=== PATIENT | male | born 1940 ===

== ENCOUNTER 2016-12-17 13:49 | Inpatient (IN) | payer OTHER, MEDICAID ==
[2016-12-17 13:50] VITALS: BMI 26.6
[2016-12-17] MEDS ORDERED: Sodium Chloride 0.9% 1,000 ML IV STA (14:57)
--- NOTE | 2016-12-17 15:05 | ED PDOC ---
HPI: Altered Mental Status Time Seen by Provider: 12/17/16 14:23 Chief Complaint (Nursing): Altered Mental Status Chief Complaint (Provider): generalized weakness History Per: Patient History/Exam Limitations: None Onset/Duration Of Symptoms: Days (x 1) Use Of Anticoag/Antiplatlets: No Additional Complaint(s): Alan Muhammad is a 76 year old male, with a previous medical history of COPD, diabetes and hypertension, who presents to the ED with complaints of generalized weakness associated with a productive cough and chest pain when coughing ongoing for one day. Patient denies any shortness of breath, vomiting or diarrhea. Patient reports to calling his PMD who recommended patient be seen in the ED for further evaluation. He reports to taking 30 mg of morphine BID and 15 mg Oxycodone BID. PMD: Dr. Seo Past Medical History Reviewed: Historical Data, Nursing Documentation, Vital Signs Vital Signs: Last Vital Signs Temp 98.2 F 12/17/16 13:51 Pulse 95 H 12/17/16 13:51 Resp 18 12/17/16 13:51 BP 105/67 12/17/16 13:51 Pulse Ox 100 12/17/16 13:51 - Medical History PMH: Anxiety, Arthritis, Asthma, COPD, CVA, Depression, Diabetes, HTN Denies: HIV, Chronic Kidney Disease - Surgical History Surgical History: Appendectomy - Family History Family History: States: Unknown Family Hx - Social History Current smoker - smoking cessation education provided: Yes (3 cigars a day) - Home Medications Home Medications: Ambulatory Orders Medication Instructions Recorded Albuterol Sulfate [Proair Hfa] 2 puff IH Q1 PRN 12/17/16 Aspirin [Ecotrin] 81 mg PO DAILY 12/17/16 Atorvastatin [Lipitor] 40 mg PO HS 12/17/16 Clonazepam [Klonopin] 2 mg PO TID 12/17/16 DULoxetine [Cymbalta] 60 mg PO BID 12/17/16 Enalapril Maleate [Vasotec] 20 mg PO Q12 12/17/16 Famotidine [Pepcid] 20 mg PO DAILY 12/17/16 Gabapentin [Neurontin] 300 mg PO Q8 12/17/16 Gabapentin [Neurontin] 300 mg PO TID 12/17/16 Levofloxacin [Levaquin] 500 mg PO DAILY 12/17/16 Levothyroxine [Levoxyl] 0.175 mg PO DAILY 12/17/16 Lisinopril [Zestril] 10 mg PO DAILY 12/17/16 Losartan/Hydrochlorothiazide 1 each PO DAILY 12/17/16 [Losartan-Hctz 100-25 mg Tab] Tamsulosin [Flomax] 0.4 mg PO DAILY 12/17/16 Venlafaxine HCl [Venlafaxine HCl 37.5 mg PO BID 12/17/16 ER] amLODIPine [Norvasc] 10 mg PO HS 12/17/16 metFORMIN [glucOPHAGE] 500 mg PO BID 12/17/16 - Allergies Allergies/Adverse Reactions: Allergies Allergy/AdvReac Type Severity Reaction Status Date / Time No Known Allergies Allergy Verified 12/17/16 13:51 Review of Systems ROS Statement: Except As Marked, All Systems Reviewed And Found Negative Constitutional: Negative for: Fever, Chills Cardiovascular: Positive for: Chest Pain (secondary to coughing ) Respiratory: Positive for: Cough, Sputum Gastrointestinal: Negative for: Nausea, Vomiting, Abdominal Pain, Diarrhea Neurological: Positive for: Weakness (generalized) Physical Exam - Reviewed Nursing Documentation Reviewed: Yes Vital Signs Reviewed: Yes - Physical Exam Appears: Positive for: Well (sleepy but arousable ), Non-toxic, No Acute Distress Head Exam: Positive for: ATRAUMATIC, NORMAL INSPECTION, NORMOCEPHALIC Skin: Positive for: Normal Color, Warm, Dry Eye Exam: Positive for: EOMI, Normal appearance, PERRL ENT: Positive for: Other (dry mucous membranes ) Neck: Positive for: Normal, Painless ROM, Supple Cardiovascular/Chest: Positive for: Regular Rate, Rhythm Respiratory: Positive for: CNT, Normal Breath Sounds Gastrointestinal/Abdominal: Positive for: Normal Exam, Bowel Sounds, Soft. Negative for: Tenderness Extremity: Positive for: Normal ROM, Pedal Edema (pitting 1+ bilaterally ) Neurologic/Psych: Positive for: Alert, Oriented (x 3) - Laboratory Results Result Diagrams: 12/17/16 15:49 12/17/16 15:49 - ECG O2 Sat by Pulse Oximetry: 100 (RA) Pulse Ox Interpretation: Normal Medical Decision Making Medical Decision Making: Initial Impression: Altered Mental Status, Dehydration, Opiate intoxication Initial Plan: * CT head w/o contrast * CXR * EKG * alcohol serum * labs * urine drug screen * lactic acid * urine dipstick * IV NS 1,000 ml at 1,000 ml/hr * reevaluation Scribe Attestation: Documented by Caity Montenegro, acting as a scribe for Myra Hernández MD. Provider Scribe Attestation: All medical record entries made by the Scribe were at my direction and personally dictated by me. I have reviewed the chart and agree that the record accurately reflects my personal performance of the history, physical exam, medical decision making, and the department course for this patient. I have also personally directed, reviewed, and agree with the discharge instructions and disposition. Disposition - Clinical Impression Clinical Impression: Opioid intoxication - Patient ED Disposition Is Patient to be Admitted: Yes Doctor Will See Patient In The: Hospital Counseled Patient/Family Regarding: Diagnosis, Need For Followup - Disposition Disposition Time: 17:00 Condition: GUARDED - Pt Status Changed To: Hospital Disposition Of: Observation - POA Present On Arrival: None
[2016-12-17 16:01] LABS: BASO % 0.4 % (0.0-2.0); EOS # 0.2 K/uL (0.0-0.7); EOS % 2.3 % (0.0-4.0); HEMATOCRIT 42.9 % (35.0-51.0); LYMPH # 1.1 K/uL (1.0-4.3); LYMPH % 10.7 % (20.0-40.0); MEAN CELL VOLUME 94.3 fl (80.0-94.0); MEAN CORPUSCULAR HEMOGLOBIN 32.1 pg (27.0-31.0); MEAN PLATELET VOLUME 9.1 fl (7.2-11.7); MONO % 9.7 % (0.0-10.0); NEUT # 8.2 K/uL (1.8-7.0); NEUT % 76.9 % (50.0-75.0); NRBC % 0.1 % (0.0-0.0); RED CELL DISTRIBUTION WIDTH 14.6 % (11.5-14.5); WHITE BLOOD COUNT 10.6 K/uL (4.8-10.8)
[2016-12-17 16:11] LABS: ALB/GLOB RATIO 1.3 (1.0-2.1); ALCOHOL SERUM < 10 mg/dl (0-10); ALKALINE PHOSPHATASE 76 U/L (38-126); ALT/SGPT 38 U/L (21-72); AST/SGOT 25 U/L (17-59); BILIRUBIN,TOTAL 1.1 mg/dl (0.2-1.3); BLOOD UREA NITROGEN 22 mg/dl (9-20); CALCIUM 8.4 mg/dL (8.4-10.2); CARBON DIOXIDE 32 mmol/L (22-30); CHLORIDE 104 mmol/L (98-107); GFR AFRICAN-AMERICAN > 60; GLUCOSE,RANDOM 121 mg/dL (75-110); SODIUM 142 mmol/l (132-148); TOTAL PROTEIN 6.3 G/DL (6.3-8.2)
--- NOTE | 2016-12-17 16:11 | RAD ---
PROCEDURE: CHEST RADIOGRAPH, 1 VIEW HISTORY: cough COMPARISON: None available. FINDINGS: LUNGS: Clear. PLEURA: No pneumothorax or pleural fluid seen. CARDIOVASCULAR: Normal. OSSEOUS STRUCTURES: No significant abnormalities. VISUALIZED UPPER ABDOMEN: Normal. OTHER FINDINGS: None. IMPRESSION: No active disease.
--- NOTE | 2016-12-17 16:50 | CT ---
PROCEDURE: CT HEAD WITHOUT CONTRAST. HISTORY: AMS COMPARISON: 12/04/2013. TECHNIQUE: Axial computed tomography images were obtained through the head/brain without intravenous contrast. Radiation dose: Total exam DLP = 1361.92 mGy-cm. This CT exam was performed using one or more of the following dose reduction techniques: Automated exposure control, adjustment of the mA and/or kV according to patient size, and/or use of iterative reconstruction technique. FINDINGS: HEMORRHAGE: No intracranial hemorrhage. BRAIN: No mass effect or edema. Cortical atrophy, periventricular small vessel disease VENTRICLES: Unremarkable. No hydrocephalus. CALVARIUM: Unremarkable. PARANASAL SINUSES: Unremarkable as visualized. No significant inflammatory changes. MASTOID AIR CELLS: Unremarkable as visualized. No inflammatory changes. OTHER FINDINGS: None. IMPRESSION: No acute intracranial abnormalities. No significant findings to account for the clinical presentation.No significant interval change compared to the prior examination(s). Limitations of the current examination: Patient related motion induced artifact.
[2016-12-17] MEDS ORDERED: Albuterol-Ipratrop 3 mg / 0.5 (3 ml) UD INH STA (23:29)
[2016-12-17] MEDS ORDERED: Morphine 15 mg SR Tab PO ONE (23:31)
[2016-12-18 07:34] LABS: HEMATOCRIT 42.3 % (35.0-51.0); MEAN CELL VOLUME 94.3 fl (80.0-94.0); MEAN CORPUSCULAR HGB CONC 33.9 g/dL (33.0-37.0); RED CELL DISTRIBUTION WIDTH 14.7 % (11.5-14.5); WHITE BLOOD COUNT 9.6 K/uL (4.8-10.8)
[2016-12-18 07:39] LABS: ALB/GLOB RATIO 1.2 (1.0-2.1); ALKALINE PHOSPHATASE 80 U/L (38-126); ALT/SGPT 29 U/L (21-72); AST/SGOT 19 U/L (17-59); BILIRUBIN,TOTAL 1.2 mg/dl (0.2-1.3); BLOOD UREA NITROGEN 17 mg/dl (9-20); CALCIUM 8.3 mg/dL (8.4-10.2); CARBON DIOXIDE 29 mmol/L (22-30); CHLORIDE 106 mmol/L (98-107); CHOLESTEROL 116 mg/dL (0-199); GFR AFRICAN-AMERICAN > 60; GLUCOSE,RANDOM 94 mg/dL (75-110); POTASSIUM 3.6 MMOL/L (3.6-5.0); SODIUM 140 mmol/l (132-148); TOTAL PROTEIN 5.8 G/DL (6.3-8.2)
[2016-12-18] MEDS: Albuterol-Ipratrop 3 mg / 0.5 (3 ml) UD INH SCH ×3 (07:40→19:21)
[2016-12-18 08:09] LABS: PROSTATE SPECIFIC ANTIGEN 3.41 ng/ML (0.00-4.0); THYROID STIMULATING HORMONE 0.48 mIU/ML (0.46-4.68)
--- NOTE | 2016-12-18 09:56 | CP.PCM.CON ---
History of Present Illness - History of Present Illness History of Present Illness: 76 yo man well known to me from previous admissions is referred for pain management. Patient has chronic pain from presumed spondylosis and neuropathy, on chronic opioids, was found confused and taken to the hospital. Apparently patient had been in [place] for several months and decided to come to [place] despite not having definite plans. Per patient his daughter wasn't home, per police the daughter didn't want to take him in. He last filled prescriptions in [place] in December/2015, there were sporadic prescriptions for Percocet 10mg, Roxicodone 15mg, and Morphine. He claims to be on Neurontin and Xanax as well. RIght now he's oriented x 3. He complains of pain in the neck, lower back and legs, and inability to move his legs. He denies recent trauma or falls. Past Patient History - Infectious Disease Hx of Infectious Diseases: None - Tetanus Immunizations Tetanus Immunization: Unknown - Past Medical History & Family History Past Medical History?: Yes - Past Social History Smoking Status: Never Smoked - CARDIAC Hx Hypertension: Yes - PULMONARY Hx Asthma: Yes Hx Chronic Obstructive Pulmonary Disease (COPD): Yes - NEUROLOGICAL Hx Neurological Disorder: Yes (cva) - HEENT Hx HEENT Problems: No - RENAL Hx Chronic Kidney Disease: No - ENDOCRINE/METABOLIC Hx Endocrine Disorders: Yes Hx Diabetes Mellitus Type 2: Yes - HEMATOLOGICAL/ONCOLOGICAL Hx AIDS: No Hx Human Immunodeficiency Virus (HIV): No - INTEGUMENTARY Hx Dermatological Problems: No - MUSCULOSKELETAL/RHEUMATOLOGICAL Hx Arthritis: Yes Hx Falls: No - GASTROINTESTINAL Hx Gastrointestinal Disorders: No - GENITOURINARY/GYNECOLOGICAL Hx Genitourinary Disorders: No - PSYCHIATRIC Hx Anxiety: Yes Hx Depression: Yes Hx Substance Use: No - SURGICAL HISTORY Hx Appendectomy: Yes - ANESTHESIA Hx Anesthesia: Yes Hx Anesthesia Reactions: No Hx Malignant Hyperthermia: No Meds Allergies/Adverse Reactions: Allergies Allergy/AdvReac Type Severity Reaction Status Date / Time No Known Allergies Allergy Verified 12/17/16 13:51 - Medications Medications: Current Medications Albuterol/Ipratropium (Duoneb 3 Mg/0.5 Mg (3 Ml) Ud) 3 ml INH RQ6 [facility] Last Admin: 12/18/16 07:40 Dose: 3 ml Aspirin (Ecotrin) 81 mg PO DAILY [facility] Physical Exam - Respiratory Exam Respiratory Exam: NORMAL BREATHING PATTERN - Cardiovascular Exam Cardiovascular Exam: REGULAR RHYTHM Results - Vital Signs Recent Vital Signs: Last Vital Signs Temp 98.9 F 12/18/16 08:00 Pulse 80 12/18/16 08:00 Resp 18 12/18/16 08:00 BP 152/82 H 12/18/16 08:00 Pulse Ox 91 L 12/18/16 08:00 - Labs Result Diagrams: 12/18/16 05:45 12/18/16 05:45 Labs: Laboratory Results - last 24 hr 12/17/16 12/18/16 12/18/16 21:27 05:20 05:45 WBC 9.6 RBC 4.49 Hgb 14.3 Hct 42.3 MCV 94.3 H MCH 32.0 H MCHC 33.9 RDW 14.7 H Plt Count 98 L Sodium Potassium Chloride Carbon Dioxide Anion Gap BUN Creatinine Est GFR ( Amer) Est GFR (Non-Af Amer) POC Glucose (mg/dL) 127 H 113 H Random Glucose Calcium Total Bilirubin AST ALT Alkaline Phosphatase Total Protein Albumin Globulin Albumin/Globulin Ratio Triglycerides Cholesterol LDL Cholesterol Direct HDL Cholesterol Prostate Specific Ag Thyroxine (T4) TSH 3rd Generation 12/18/16 05:45 WBC RBC Hgb Hct MCV MCH MCHC RDW Plt Count Sodium 140 Potassium 3.6 Chloride 106 Carbon Dioxide 29 Anion Gap 8 L BUN 17 Creatinine 0.8 Est GFR ( Amer) > 60 Est GFR (Non-Af Amer) > 60 POC Glucose (mg/dL) Random Glucose 94 Calcium 8.3 L Total Bilirubin 1.2 AST 19 ALT 29 Alkaline Phosphatase 80 Total Protein 5.8 L Albumin 3.2 L Globulin 2.6 Albumin/Globulin Ratio 1.2 Triglycerides 100 Cholesterol 116 LDL Cholesterol Direct 54 HDL Cholesterol 39 Prostate Specific Ag 3.41 Thyroxine (T4) 6.20 TSH 3rd Generation 0.48 Assessment & Plan (1) Chronic back pain Assessment and Plan: 76 yo man w/ known chronic pain history and on chronic pain medications supposedly had AMS. It's unclear if patient took more medication than usual. There is also the matter of disposition for the patient. - restart Percocet 5/325mg, titrate as needed - f/u psych eval - can resume previous pain regimen once patient is cleared by psych - social service consult for placement, patient has no address to return to [facility] Status: Acute Priority: High
[2016-12-18] MEDS ORDERED: guaiFENesin 100 mg/5 ml Syrup UD PO PRN (09:59)
[2016-12-18] MEDS: Oxycodone/Acetaminophen 5/325 mg Tab PO PRN ×3 (10:10→22:33)
--- NOTE | 2016-12-18 13:09 | CP.PCM.HP ---
History of Present Illness - History of Present Illness History of Present Illness: CC: AMS. 76 y/o M, brought to ER [facility] for evaluation of AMS on DOA with no relief. Pt was brought by EMS to hospital after been found with confusion,disoriented, wondering in the street, there after on evaluation, symptoms were associated to Opiates abuse. Patient previously was living in [place] , He moved to [place] for about a year and just arrived to [place] , as per police report He has a daughter living in [place] , but She does not want to take care of him. Patient is on chronic opiates pain medication for chronic back , Cervical pain , O/A Hips , knees, and chronic benzodiazepines and antidepresants for chronic anxiety and depression. Worsening symptoms: Generalized weakness, productive cough, chest pain with coughing, currently light smoker. Aggravated factor: Poor historian 2nd to change in mental condition. Pt denied: Fever, chills, n/v/d, abdominal pain. PMHx: COPD, CVA 2010, DMII, HTN, Chronic back pain, O/A, Dementia, Major Depression, Anxiety. CXR shows: No active disease. EKG: Normal sinus rhythms, left axis deviation, incomplete RBBB, Possible septal infarct, age undetermined. Head CT: No acute intracranial abnormalities. Present on Admission - Present on Admission Any Indicators Present on Admission: No History of Uncontrolled Diabetes: No Review of Systems - Constitutional Constitutional: Weakness - EENT Eyes: Requires Corrective Lenses Ears: Other (negative) Nose/Mouth/Throat: Other (negative) - Cardiovascular Cardiovascular: Other (negative) - Respiratory Respiratory: Cough, Pain with Coughing - Gastrointestinal Gastrointestinal: Other (negative) - Genitourinary Genitourinary: Other (negative) - Musculoskeletal Musculoskeletal: Arthralgias, Back Pain, Neck Pain - Integumentary Integumentary: Other (negative) - Neurological Neurological: Weakness - Psychiatric Psychiatric: Anxiety, Confusion, Depression - Endocrine Endocrine: Other (negative) - Hematologic/Lymphatic Hematologic: Other (negative) Past Patient History - Infectious Disease Hx of Infectious Diseases: None - Tetanus Immunizations Tetanus Immunization: Unknown - Past Medical History & Family History Past Medical History?: Yes - Past Social History Smoking Status: Light Smoker < 10 Cigarettes Daily Alcohol: None Drugs: Opiates Home Situation {Lives}: Alone - CARDIAC Hx Cardiac Disorders: Yes Hx Hypertension: Yes - PULMONARY Hx Respiratory Disorders: Yes Hx Asthma: Yes Hx Bronchitis: Yes Hx Chronic Obstructive Pulmonary Disease (COPD): Yes - NEUROLOGICAL Hx Neurological Disorder: Yes (cva) - HEENT Hx HEENT Problems: No - RENAL Hx Chronic Kidney Disease: No - ENDOCRINE/METABOLIC Hx Endocrine Disorders: Yes Hx Diabetes Mellitus Type 2: Yes Hx Hypothyroidism: Yes - HEMATOLOGICAL/ONCOLOGICAL Hx AIDS: No Hx Human Immunodeficiency Virus (HIV): No - INTEGUMENTARY Hx Dermatological Problems: No - MUSCULOSKELETAL/RHEUMATOLOGICAL Hx Musculoskeletal Disorders: Yes Hx Arthritis: Yes Hx Back Pain: Yes Hx Falls: No - GASTROINTESTINAL Hx Gastrointestinal Disorders: No - GENITOURINARY/GYNECOLOGICAL Hx Genitourinary Disorders: No - PSYCHIATRIC Hx Psychophysiologic Disorder: Yes Hx Anxiety: Yes Hx Depression: Yes Hx Substance Use: No - SURGICAL HISTORY Hx Surgeries: Yes Hx Appendectomy: Yes - ANESTHESIA Hx Anesthesia: Yes Hx Anesthesia Reactions: No Hx Malignant Hyperthermia: No Meds Allergies/Adverse Reactions: Allergies Allergy/AdvReac Type Severity Reaction Status Date / Time No Known Allergies Allergy Verified 12/17/16 13:51 Physical Exam - Constitutional Appears: Confused, Chronically Ill - Head Exam Head Exam: NORMAL INSPECTION - Eye Exam Eye Exam: PERRL - ENT Exam ENT Exam: Normal Exam - Neck Exam Neck exam: Positive for: Tenderness (Cervical) - Respiratory Exam Respiratory Exam: Decreased Breath Sounds (at bases), Rhonchi (few at bases) - Cardiovascular Exam Cardiovascular Exam: REGULAR RHYTHM - GI/Abdominal Exam GI & Abdominal Exam: Normal Bowel Sounds, Soft - Extremities Exam Extremities exam: Positive for: tenderness (R-L knee , RL Hip , R L hand) Additional comments: Trace edema L/E - Back Exam Back exam: tenderness (L-S) - Neurological Exam Neurological exam: Alert Additional comments: Oriented 2-1/2, Forgetful. moves upper extremities, L/E with weakness but difficult to assess due to L-S, R-L hip, R-L knee tenderness. - Psychiatric Exam Psychiatric exam: Anxious, Depressed - Skin Skin Exam: Warm Results - Vital Signs Recent Vital Signs: Last Vital Signs Temp 98.4 F 12/18/16 12:00 Pulse 81 12/18/16 12:00 Resp 18 12/18/16 12:00 BP 123/92 H 12/18/16 12:00 Pulse Ox 96 12/18/16 12:00 - Labs Result Diagrams: 12/18/16 05:45 12/18/16 05:45 Assessment & Plan (1) Opioid intoxication Status: Acute Priority: High (2) Altered mental status Status: Acute Priority: High (3) Pain in both knees Status: Chronic Priority: High (4) Cervical pain Status: Chronic Priority: High (5) Pain of both hip joints Status: Chronic Priority: High (6) Chronic back pain Status: Chronic Priority: High (7) COPD (chronic obstructive pulmonary disease) Status: Chronic Priority: Medium (8) HTN (hypertension) Status: Chronic Priority: Medium (9) Depression Status: Chronic Priority: High (10) Anxiety Status: Chronic Priority: High (11) Diabetes mellitus Status: Chronic (12) Hypothyroidism Status: Chronic - Assessment and Plan (Free Text) Plan: Pain control with , PT eval, Pain management consult appreciated, f/u Neuro and Psychiatric and Social Service consult - Date & Time Date: 12/18/16 Time: 11:30
--- NOTE | 2016-12-18 14:04 | CARD ---
APPROVED REPORT EKG Measurement Heart [id number] <Conclusion> Normal sinus rhythm Left axis deviation Incomplete right bundle branch block Possible septal infarct, age undetermined Abnormal ECG
--- NOTE | 2016-12-18 14:44 | CP.PCM.CON ---
History of Present Illness - History of Present Illness History of Present Illness: psychiatry consult ordered by: dr. rodríguez reason: opioid/benzo intoxication cc: i don't need you pt is refusing consult. can retry tomorrow if pt is more cooperative denies any suicidal thoughts. has history of abusing prescription medications with poor insight. history of mood dysregulation. please call if any questions [phone] Past Patient History - Infectious Disease Hx of Infectious Diseases: None - Tetanus Immunizations Tetanus Immunization: Unknown - Past Medical History & Family History Past Medical History?: Yes - Past Social History Smoking Status: Never Smoked - CARDIAC Hx Hypertension: Yes - PULMONARY Hx Asthma: Yes Hx Chronic Obstructive Pulmonary Disease (COPD): Yes - NEUROLOGICAL Hx Neurological Disorder: Yes (cva) - HEENT Hx HEENT Problems: No - RENAL Hx Chronic Kidney Disease: No - ENDOCRINE/METABOLIC Hx Endocrine Disorders: Yes Hx Diabetes Mellitus Type 2: Yes - HEMATOLOGICAL/ONCOLOGICAL Hx AIDS: No Hx Human Immunodeficiency Virus (HIV): No - INTEGUMENTARY Hx Dermatological Problems: No - MUSCULOSKELETAL/RHEUMATOLOGICAL Hx Arthritis: Yes Hx Falls: No - GASTROINTESTINAL Hx Gastrointestinal Disorders: No - GENITOURINARY/GYNECOLOGICAL Hx Genitourinary Disorders: No - PSYCHIATRIC Hx Anxiety: Yes Hx Depression: Yes Hx Substance Use: No - SURGICAL HISTORY Hx Appendectomy: Yes - ANESTHESIA Hx Anesthesia: Yes Hx Anesthesia Reactions: No Hx Malignant Hyperthermia: No Meds Allergies/Adverse Reactions: Allergies Allergy/AdvReac Type Severity Reaction Status Date / Time No Known Allergies Allergy Verified 12/17/16 13:51 - Medications Medications: Current Medications Albuterol/Ipratropium (Duoneb 3 Mg/0.5 Mg (3 Ml) Ud) 3 ml INH RQ6 [facility] Last Admin: 12/18/16 13:22 Dose: 3 ml Aspirin (Ecotrin) 81 mg PO DAILY [facility] Last Admin: 12/18/16 10:12 Dose: 81 mg Famotidine (Pepcid) 20 mg PO DAILY [facility] Gabapentin (Neurontin) 300 mg PO BID [facility] Guaifenesin (Robitussin) 100 mg PO Q6 PRN PRN Reason: Cough Last Admin: 12/18/16 10:17 Dose: 100 mg Levothyroxine Sodium (Synthroid) 175 mcg PO DAILY@0630 [facility] Lisinopril (Zestril) 10 mg PO DAILY [facility] Metformin HCl (Glucophage) 500 mg PO BIDWM [facility] Oxycodone/Acetaminophen (Percocet 5/325 Mg Tab) 1 tab PO Q6 PRN PRN Reason: Pain, severe (8-10) Stop: 12/21/16 10:01 Last Admin: 12/18/16 10:10 Dose: 1 tab Tamsulosin HCl (Flomax) 0.4 mg PO DAILY [facility] Results - Vital Signs Recent Vital Signs: Last Vital Signs Temp 98.4 F 12/18/16 12:00 Pulse 81 12/18/16 12:00 Resp 18 12/18/16 12:00 BP 123/92 H 12/18/16 12:00 Pulse Ox 96 12/18/16 12:00 - Labs Result Diagrams: 12/18/16 05:45 12/18/16 05:45
[2016-12-18] MEDS: Levothyroxine 175 MCG TAB PO SCH (15:34)
--- NOTE | 2016-12-18 15:48 | CON ---
DATE: 12/18/2016 CHIEF COMPLAINT: Chronic low back pain and neck pain and generalized weakness. HISTORY OF PRESENT ILLNESS: This is a 76-year-old man with history of chronic obstructive pulmonary disease, diabetes, hypertension, who came to the hospital with generalized weakness associated with a productive cough for 1 day and he has been having chronic pain syndrome from his low back and cervic al area. 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 He is on multiple amounts of opiate medications such as morphine 30 mg of morphine p.o. b.i.d., oxycodone 15 mg p.o. b.i.d., MS John. His U-tox is positive for opiates and benzos. He does take Xanax as well and Neurontin for neuropathic pain. I feel that he is definitely abusing prescription medication with poor insight. He declined a psychiatric consult. Pain management has seen the patient and just recommended some Percocet and titrate as needed and to follow up as an outp atient. I saw her physical therapist at bedside. She also recommended subacute rehabilitation for h is low back pain and his poor balance. PAST MEDICAL HISTORY: Diabetes, COPD, hypertension, dyslipidemia. REVIEW OF SYSTEMS: A 14-point review of systems is negative except for the HPI. FAMILY HISTORY: Noncontributory. SOCIAL HISTORY: No illicit drug use, smoking, or ETOH abuse. ALLERGIES: No known drug allergies. PAST SURGICAL HISTORY: Appendectomy. FAMILY HISTORY: Noncontributory. PHYSICAL EXAMINATION: VITAL SIGNS: Temperature is 98.4, pulse rate of 81, blood pressure 123/92, respiratory rate 18, oxyg en saturation 96% on room air. GENERAL: The patient is sitting up in bed in no acute distress. HEENT: Atraumatic, normocephalic. PERRLA. Extraocular muscles intact. NECK: Supple, no JVD, no adenopathy noted. LUNGS: Clear to auscultation. No adventitious sounds. HEART: S1, S2, normal rate and rhythm. No murmurs, rubs, or gallops. ABDOMEN: Soft, nontender and nondistended. Bowel sounds are present. EXTREMITIES: No clubbing, no cyanosis. Peripheral pulses are 2+ felt bilaterally. NEUROLOGIC: The patient is alert, oriented to person, place, month and year. Speech is fluent, with out any errors. Poor attention span, slow thought process. Has lack of insight and judgment. Crani al nerves II-XII are intact. MOTOR: Slight increased tone throughout. Moves all extremities equally. No pronator drift is seen. SENSORY: Decreased light touch and pinprick up to the calves bilaterally, diffuse vibration of the t oes, proprioception intact bilaterally. DTRs are 1+ throughout and absent at the ankles. COORDINATION: [id number] intact. GAIT: Deferred for now. LABORATORY DATA: U-tox is positive for opiates and benzos. Sodium is 140, potassium 3.6, chloride o f 106, carbon dioxide 29, BUN of 17, creatinine 0.8. Random glucose 94. ASSESSMENT AND PLAN: This is a 76-year-old man with history of chronic obstructive pulmonary disease , history of depression, diabetes, hypertension, anxiety, arthritis, who presented with generalized w eakness, some productive cough and chest pain which he has been seeing Dr. Seo for his medical doct or. Was consulted for his lower extremity weakness and generalized weakness. He has chronic low back pain and chronic neck pain with some radicular component. His chronic low back pain radiates down m ostly his left leg. 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 He has history of MRIs in the past. No results are reported. He has a massive amount of opi ates in terms of morphine 30 mg p.o. b.i.d. and oxycodone 15 mg b.i.d., Neurontin and Xanax. At this time, his generalized weakness overall is secondary to overuse of opiate medications. Morphine can also lower his blood pressure which can make him generally weak. At this time, recommend: 1. Physical therapy and occupational therapy for deconditioning, arthritis and for the cervical and lumbosacral radiculopathies. 2. We will recommend him to go to subacute rehabilitation for deconditioned state and some cervical and lumbosacral pain relief. Plus he also would benefit from muscle strengthening and a TENS unit, u ltrasound therapy and rehabilitation. 3. We will recommend gabapentin 600 mg p.o. b.i.d. and discontinue morphine and oxycodone. Can take p.r.n. Percocet as per pain management. 4. Can follow up with a pain specialist. 5. We will get an MRI of the C and lumbar spine and if there is any cord compression or any severe l umbar and cervical stenosis, could consult neurosurgery. At this time, recommend subacute rehabilita tion. He is clinically stable. Will sign off. Emigdio Marcum MD cc: [id number] TT: 12/18/2016 15:47:34 Confirmation # [id number] Dictation # [id number] [email or web address]
[2016-12-19] MEDS: Albuterol-Ipratrop 3 mg / 0.5 (3 ml) UD INH SCH ×4 (01:10→19:05)
[2016-12-19] MEDS: Levothyroxine 175 MCG TAB PO SCH (05:55)
[2016-12-19] MEDS: Oxycodone/Acetaminophen 5/325 mg Tab PO PRN ×3 (07:30→21:08)
[2016-12-19 09:18] LABS: BLOOD UREA NITROGEN 13 mg/dl (9-20); CALCIUM 8.8 mg/dL (8.4-10.2); CARBON DIOXIDE 24 mmol/L (22-30); CHLORIDE 109 mmol/L (98-107); GFR AFRICAN-AMERICAN > 60; GLUCOSE,RANDOM 130 mg/dL (75-110); POTASSIUM 3.6 MMOL/L (3.6-5.0); SODIUM 142 mmol/l (132-148)
--- NOTE | 2016-12-19 14:22 | CP.PCM.CON ---
History of Present Illness - History of Present Illness History of Present Illness: psychiatry consult reason: medication recommendations, ? overdose ordered by dr. rodríguez cc: don't take away my klonopin pt has history of anxiety, depression. he initially is denying being in a psychiatric hospital in past, until confronted with fact that pt was seen by this scientific technical writer in past on step unit and on medical floor here. he was stating that he just came after 4 years in [place]. he states he has intractable pain from injuries. he is being seen by pain management here now. he denies that he tried to take on overdose and denies that he wants to kill himself. he states the klonopin is to help him deal with the pain. at first he denies having any problems with withdrawal, but then states he is feeling anxious and shaky. patient does no want inpatient psychiatric treatment. past psych: as above. was hospitalized on step unit. no dementia per psychology assessment there. was tapered off benzos on unit. medical; as per dr. 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 states he is living in [place] and wants to return there. mse: alert, oriented x. 3. mood is anxious. affect congruent. thoughts are focused on his benzodizapine medications. he is denying any suicidal or homicidal thoughts. denies any a/v hallucinations. fair i/j. diagnosis: mood disorder unspecified sedative hypnotic abuse/dependence recommendation: would restart klonopin 1mg tid and start to taper to prevent withdrawal discontinue restoril pt was taking remeron in past and can restart that for sleep cleared for discharged in terms of psychiatric safety as he is goal directed, future oriented and denying any thoughts to harm himself refused idea of inpt rehab / detox for sedative hypnotic abuse Past Patient History - Infectious Disease Hx of Infectious Diseases: None - Tetanus Immunizations Tetanus Immunization: Unknown - Past Medical History & Family History Past Medical History?: Yes - Past Social History Smoking Status: Light Smoker < 10 Cigarettes Daily Alcohol: None Drugs: Opiates Home Situation {Lives}: Alone - CARDIAC Hx Cardiac Disorders: Yes Hx Hypertension: Yes - PULMONARY Hx Respiratory Disorders: Yes Hx Asthma: Yes Hx Bronchitis: Yes Hx Chronic Obstructive Pulmonary Disease (COPD): Yes - NEUROLOGICAL Hx Neurological Disorder: Yes (cva) - HEENT Hx HEENT Problems: No - RENAL Hx Chronic Kidney Disease: No - ENDOCRINE/METABOLIC Hx Endocrine Disorders: Yes Hx Diabetes Mellitus Type 2: Yes Hx Hypothyroidism: Yes - HEMATOLOGICAL/ONCOLOGICAL Hx AIDS: No Hx Human Immunodeficiency Virus (HIV): No - INTEGUMENTARY Hx Dermatological Problems: No - MUSCULOSKELETAL/RHEUMATOLOGICAL Hx Musculoskeletal Disorders: Yes Hx Arthritis: Yes Hx Back Pain: Yes Hx Falls: No - GASTROINTESTINAL Hx Gastrointestinal Disorders: No - GENITOURINARY/GYNECOLOGICAL Hx Genitourinary Disorders: No - PSYCHIATRIC Hx Psychophysiologic Disorder: Yes Hx Anxiety: Yes Hx Depression: Yes Hx Substance Use: No - SURGICAL HISTORY Hx Surgeries: Yes Hx Appendectomy: Yes - ANESTHESIA Hx Anesthesia: Yes Hx Anesthesia Reactions: No Hx Malignant Hyperthermia: No Meds Allergies/Adverse Reactions: Allergies Allergy/AdvReac Type Severity Reaction Status Date / Time No Known Allergies Allergy Verified 12/17/16 13:51 - Medications Medications: Current Medications Albuterol/Ipratropium (Duoneb 3 Mg/0.5 Mg (3 Ml) Ud) 3 ml INH RQ6 [facility] Last Admin: 12/19/16 13:49 Dose: 3 ml Aspirin (Ecotrin) 81 mg PO DAILY [facility] Last Admin: 12/19/16 08:53 Dose: 81 mg Famotidine (Pepcid) 20 mg PO DAILY [facility] Last Admin: 12/19/16 08:53 Dose: 20 mg Gabapentin (Neurontin) 400 mg PO BID [facility] Last Admin: 12/19/16 08:53 Dose: 400 mg Guaifenesin (Robitussin) 100 mg PO Q6 PRN PRN Reason: Cough Last Admin: 12/18/16 10:17 Dose: 100 mg Levothyroxine Sodium (Synthroid) 175 mcg PO DAILY@0630 [facility] Last Admin: 12/19/16 05:55 Dose: 175 mcg Lisinopril (Zestril) 10 mg PO DAILY [facility] Last Admin: 12/19/16 08:53 Dose: 10 mg Metformin HCl (Glucophage) 500 mg PO BIDWM [facility] Last Admin: 12/19/16 08:53 Dose: 500 mg Oxycodone/Acetaminophen (Percocet 5/325 Mg Tab) 1 tab PO Q6 PRN PRN Reason: Pain, severe (8-10) Stop: 12/21/16 10:01 Last Admin: 12/19/16 12:54 Dose: 1 tab Tamsulosin HCl (Flomax) 0.4 mg PO DAILY [facility] Last Admin: 12/18/16 15:28 Dose: Not Given Results - Vital Signs Recent Vital Signs: Last Vital Signs Temp 98.3 F 12/19/16 12:41 Pulse 91 H 12/19/16 12:41 Resp 17 12/19/16 12:41 BP 140/65 12/19/16 12:41 Pulse Ox 97 12/19/16 12:41 - Labs Result Diagrams: 12/18/16 05:45 12/19/16 08:56 Labs: Laboratory Results - last 24 hr 12/18/16 12/18/16 12/19/16 15:48 22:04 05:21 Sodium Potassium Chloride Carbon Dioxide Anion Gap BUN Creatinine Est GFR ( Amer) Est GFR (Non-Af Amer) POC Glucose (mg/dL) 176 H 149 H 131 H Random Glucose Calcium 12/19/16 12/19/16 08:56 11:39 Sodium 142 Potassium 3.6 Chloride 109 H Carbon Dioxide 24 Anion Gap 13 BUN 13 Creatinine 0.7 L Est GFR ( Amer) > 60 Est GFR (Non-Af Amer) > 60 POC Glucose (mg/dL) 118 H Random Glucose 130 H Calcium 8.8
--- NOTE | 2016-12-19 14:22 | CP.PCM.PN ---
Subjective - Date & Time of Evaluation Date of Evaluation: 12/19/16 Time of Evaluation: 10:30 - Subjective Subjective: F/U Opioid intoxication. Patient complaimns of Cervical , L-S , R L knee pain, R L L/E weakness, requestiing Rachel for anxiety and help with the pain Objective - Vital Signs/Intake and Output Vital Signs (last 24 hours): Temp Pulse Resp BP Pulse Ox 98.3 F 91 H 17 140/65 97 12/19/16 12:41 12/19/16 12:41 12/19/16 12:41 12/19/16 12:41 12/19/16 12:41 - Medications Medications: Current Medications Albuterol/Ipratropium (Duoneb 3 Mg/0.5 Mg (3 Ml) Ud) 3 ml INH RQ6 [facility] Last Admin: 12/19/16 13:49 Dose: 3 ml Aspirin (Ecotrin) 81 mg PO DAILY [facility] Last Admin: 12/19/16 08:53 Dose: 81 mg Famotidine (Pepcid) 20 mg PO DAILY [facility] Last Admin: 12/19/16 08:53 Dose: 20 mg Gabapentin (Neurontin) 400 mg PO BID [facility] Last Admin: 12/19/16 08:53 Dose: 400 mg Guaifenesin (Robitussin) 100 mg PO Q6 PRN PRN Reason: Cough Last Admin: 12/18/16 10:17 Dose: 100 mg Levothyroxine Sodium (Synthroid) 175 mcg PO DAILY@0630 [facility] Last Admin: 12/19/16 05:55 Dose: 175 mcg Lisinopril (Zestril) 10 mg PO DAILY [facility] Last Admin: 12/19/16 08:53 Dose: 10 mg Metformin HCl (Glucophage) 500 mg PO BIDWM [facility] Last Admin: 12/19/16 08:53 Dose: 500 mg Oxycodone/Acetaminophen (Percocet 5/325 Mg Tab) 1 tab PO Q6 PRN PRN Reason: Pain, severe (8-10) Stop: 12/21/16 10:01 Last Admin: 12/19/16 12:54 Dose: 1 tab Tamsulosin HCl (Flomax) 0.4 mg PO DAILY [facility] Last Admin: 12/18/16 15:28 Dose: Not Given - Labs Labs: 12/19/16 08:56 - Constitutional Appears: Chronically Ill - Head Exam Head Exam: NORMAL INSPECTION - Eye Exam Eye Exam: PERRL - ENT Exam ENT Exam: Normal Exam - Neck Exam Neck Exam: Tenderness (Cervical) - Respiratory Exam Respiratory Exam: Decreased Breath Sounds (at bases), Rhonchi (few at bases) - Cardiovascular Exam Cardiovascular Exam: REGULAR RHYTHM - GI/Abdominal Exam GI & Abdominal Exam: Soft, Normal Bowel Sounds - Extremities Exam Extremities Exam: Tenderness (R L Hip , R L knee) Additional comments: Trace edema lower extremities. - Back Exam Back Exam: tenderness (L-S) - Neurological Exam Neurological Exam: Alert Additional comments: Oriented x 3, vague answers at times regarding reasons He decided to move to [place] , moves upper extremities, L/E with weakness but difficult to assess due to L -S, R-L hip and knees tenderness. - Psychiatric Exam Psychiatric exam: Anxious, Depressed - Skin Skin Exam: Warm Assessment and Plan (1) Opioid intoxication Status: Acute (2) Altered mental status Status: Acute (3) Pain in both knees Status: Chronic (4) Cervical pain Status: Chronic (5) Pain of both hip joints Status: Chronic (6) Chronic back pain Status: Chronic (7) COPD (chronic obstructive pulmonary disease) Status: Chronic (8) HTN (hypertension) Status: Chronic (9) Depression Status: Chronic (10) Anxiety Status: Chronic (11) Diabetes mellitus Status: Chronic (12) Hypothyroidism Status: Chronic - Assessment and Plan (Free Text) Plan: Patient agrees to have Psych consult, f/u Neurology consult, PT, continue Percocet and rest of treatment , f/u MRI Cervical and L-S
[2016-12-20] MEDS: Albuterol-Ipratrop 3 mg / 0.5 (3 ml) UD INH SCH ×3 (01:05→13:25)
[2016-12-20] MEDS: Levothyroxine 175 MCG TAB PO SCH (06:08)
[2016-12-20 08:50] VITALS: RESP 20
[2016-12-20] MEDS: Oxycodone/Acetaminophen 5/325 mg Tab PO PRN (08:55)
[2016-12-20 13:23] VITALS: BP 128/78; TEMP 98.4
[2016-12-20 14:28] VITALS: PULSE 90; O2SAT 96
--- NOTE | 2016-12-20 17:14 | MRI ---
PROCEDURE: MR CERVICAL SPINE WITHOUT CONTRAST HISTORY: weakness lower extremities COMPARISON: None available. TECHNIQUE: Multiecho multiplanar sequences were performed through the cervical spine without the use of intravenous contrast. FINDINGS: There is 3 mm degenerative retrolisthesis of C3 on C4. There is straightening of the cervical spine with loss of normal cervical lordosis. Bone marrow signal is heterogeneous however within normal limits. There is no acute fracture. The craniocervical junction is normal. 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 C2-C3: No disc herniation, spinal canal stenosis or neural foraminal narrowing. C3-C4: Broad-based disc osteophyte complex indents the ventral cord and results in moderate spinal canal stenosis. Also noted is superimposed right posterolateral disc protrusion. Mild right and moderate left facet arthropathy contribute to mild right and moderate left neural foraminal stenosis. No intrinsic cord signal abnormality. C4-C5: Broad-based disc osteophyte complex abuts the ventral cord and in conjunction with mild ligamentum flavum infolding results in moderate spinal canal stenosis. Mild bilateral facet arthropathy contributes to moderate bilateral neural foraminal stenosis. C5-C6: Broad-based disc osteophyte complex in conjunction with moderate ligamentum flavum infolding results in severe spinal canal stenosis. Also noted is increased T2 signal in the central cord. Moderate bilateral facet arthropathy contributes to severe bilateral neural foraminal stenosis. C6-C7: Disc osteophyte complex and moderate bilateral facet arthropathy result in mild spinal canal stenosis and severe bilateral neural foraminal stenosis, left greater than right. C7-T1: No disc herniation, spinal canal stenosis or neural foraminal narrowing. OTHER FINDINGS: Paraspinous soft tissues are normal. IMPRESSION: Multilevel degenerative disc disease due to combination of disc osteophyte complexes, variable degree of ligamentum flavum infolding and facet arthropathy, worse at C5-6 with severe spinal canal stenosis and abnormal focal cord signal at this level which may represent cord edema or ischemia. No evidence of cord atrophy. Also noted is severe bilateral neural foraminal stenosis. Additional comments as described above.
--- NOTE | 2016-12-20 17:21 | MRI ---
PROCEDURE: MR LUMBAR SPINE WITHOUT CONTRAST HISTORY: Weakness in lower extremities COMPARISON: Plain radiographs from 05/05/2013 TECHNIQUE: Multiecho multiplanar sequences were performed through the lumbar spine without the use of intravenous contrast. FINDINGS: There is straightening of the lumbar spine with loss of normal lumbar lordosis. Vertebral alignment is normal. Vertebral height is maintained. There are advanced degenerative endplate marrow changes at L5-S1, otherwise bone marrow signal is within normal limits. There is no acute fracture, spondylolysis or spondylolisthesis. T12-L1: No disc herniation, spinal canal stenosis or neural foraminal narrowing. L1-2: No disc herniation, spinal canal stenosis or neural foraminal narrowing. L2-3: Posterior disc bulge and moderate bilateral facet arthropathy result in mild neural foraminal stenosis. No spinal canal stenosis. L3-4: Diffuse posterior disc bulge in conjunction with mild ligamentum flavum infolding results in mild spinal canal stenosis. Severe bilateral facet arthropathy with facet joint effusions, worse on the right contributes to moderate right and moderate left neural foraminal stenosis. L4-5: Diffuse posterior disc bulge in conjunction with moderate ligamentum flavum infolding results in mild spinal canal stenosis. Severe bilateral facet arthropathy with facet joint effusions contributes to severe neural foraminal stenosis. L5-S1: Diffuse posterior disc bulge indents the ventral thecal sac and results in mild spinal canal stenosis. Severe bilateral facet arthropathy contributes to severe bilateral neural foraminal stenosis. OTHER FINDINGS: The paraspinous soft tissues are normal. Imaged portion of the retroperitoneum is within normal limits. IMPRESSION: 1. Multilevel degenerative disc disease, worse at L4-5 with mild spinal canal stenosis and severe bilateral neural foraminal stenosis. 2. Additional comments as described above.
--- NOTE | 2016-12-20 17:46 | CP.PCM.PN ---
Subjective - Date & Time of Evaluation Date of Evaluation: 12/20/16 Time of Evaluation: 11:00 - Subjective Subjective: F/U AMS, Opioid abuse. Complains of Cervical ,L-S ,R L hand , RL HIP [pain , R L knee weakness, Objective - Vital Signs/Intake and Output Vital Signs (last 24 hours): Temp Pulse Resp BP Pulse Ox 98.4 F 90 20 128/78 96 12/20/16 12:00 12/20/16 14:20 12/20/16 12:00 12/20/16 12:00 12/20/16 14:20 - Medications Medications: Current Medications Albuterol/Ipratropium (Duoneb 3 Mg/0.5 Mg (3 Ml) Ud) 3 ml INH RQ6 [facility] Last Admin: 12/20/16 13:25 Dose: 3 ml Aspirin (Ecotrin) 81 mg PO DAILY [facility] Last Admin: 12/20/16 08:56 Dose: 81 mg Clonazepam (Klonopin) 1 mg PO TID [facility] Last Admin: 12/20/16 08:54 Dose: 1 mg Famotidine (Pepcid) 20 mg PO DAILY [facility] Last Admin: 12/20/16 08:55 Dose: 20 mg Gabapentin (Neurontin) 400 mg PO BID [facility] Last Admin: 12/20/16 08:55 Dose: 400 mg Guaifenesin (Robitussin) 100 mg PO Q6 PRN PRN Reason: Cough Last Admin: 12/18/16 10:17 Dose: 100 mg Levothyroxine Sodium (Synthroid) 175 mcg PO DAILY@0630 [facility] Last Admin: 12/20/16 06:08 Dose: 175 mcg Lisinopril (Zestril) 10 mg PO DAILY [facility] Last Admin: 12/20/16 08:58 Dose: 10 mg Metformin HCl (Glucophage) 500 mg PO BIDWM [facility] Last Admin: 12/20/16 08:55 Dose: 500 mg Mirtazapine (Remeron) 7.5 mg PO HS [facility] Last Admin: 12/19/16 21:07 Dose: 7.5 mg Oxycodone/Acetaminophen (Percocet 5/325 Mg Tab) 1 tab PO Q6 PRN PRN Reason: Pain, severe (8-10) Stop: 12/21/16 10:01 Last Admin: 06/14/17 08:55 Dose: 1 tab Tamsulosin HCl (Flomax) 0.4 mg PO DAILY [facility] Last Admin: 12/20/16 08:55 Dose: 0.4 mg - Labs Labs: 12/19/16 08:56 - Constitutional Appears: Chronically Ill - Head Exam Head Exam: NORMAL INSPECTION - Eye Exam Eye Exam: PERRL - ENT Exam ENT Exam: Normal Exam - Neck Exam Neck Exam: Tenderness (Cervical) - Respiratory Exam Respiratory Exam: Decreased Breath Sounds (at bases) - Cardiovascular Exam Cardiovascular Exam: REGULAR RHYTHM - GI/Abdominal Exam GI & Abdominal Exam: Soft, Normal Bowel Sounds - Extremities Exam Extremities Exam: Tenderness (Knees, Hips, Hands.) - Back Exam Back Exam: tenderness (L-S) - Neurological Exam Neurological Exam: Awake, CN II-XII Intact, Oriented x3 Additional comments: moves U/E, weakness L/E, difficulty to assess due to tenderness L-S, Hips, Knees. - Psychiatric Exam Psychiatric exam: Anxious, Depressed - Skin Skin Exam: Warm Assessment and Plan (1) Opioid intoxication Status: Acute (2) Altered mental status Status: Acute (3) Sedative abuse Assessment & Plan: Status: Acute (4) Opioid abuse Status: Acute (5) Pain in both knees Status: Chronic (6) Cervical pain Status: Chronic (7) Pain of both hip joints Status: Chronic (8) Chronic back pain Status: Chronic (9) COPD (chronic obstructive pulmonary disease) Status: Chronic (10) HTN (hypertension) Status: Chronic (11) Depression Status: Chronic (12) Anxiety Status: Chronic (13) Diabetes mellitus Status: Chronic (14) Hypothyroidism Status: Chronic - Assessment and Plan (Free Text) Plan: Psych consult appreciated , sedative/opioid abuse dependency, decrease Klonopin 1 mg TID , DC Restoril , Neurology decorating consultant recommended Gabapentin , Percocet , DC Morphine , f/u MRI Cervical , L-S, PT MARIAM
== END 2016-12-20 14:30 | disposition left against medical advice (07) | DRG 894 ==
LOC: H.ER 13:49 → H.ERHOLD 17:03 → H.TEL 18:46 → OBSVTOIN 12-18 12:25
PROVIDERS: ADMIT Internal Medicine Pulmonary Disease; ATTEND Internal Medicine Pulmonary Disease
DX: F11.229 Opioid dependence with intoxication, unspecified (principal); F13.229 Sedative, hypnotic or anxiolytic dependence with intoxication, unspecified; J44.9 Chronic obstructive pulmonary disease, unspecified; E11.9 Type 2 diabetes mellitus without complications; G89.4 Chronic pain syndrome; I10 Essential (primary) hypertension; F32.9 Major depressive disorder, single episode, unspecified; F39 Unspecified mood [affective] disorder; M25.562 Pain in left knee; M25.561 Pain in right knee; M25.552 Pain in left hip; M25.551 Pain in right hip; M54.5 Low back pain; M17.0 Bilateral primary osteoarthritis of knee; M16.0 Bilateral primary osteoarthritis of hip; F41.9 Anxiety disorder, unspecified; E03.9 Hypothyroidism, unspecified; E78.5 Hyperlipidemia, unspecified; F17.210 Nicotine dependence, cigarettes, uncomplicated; Z79.82 Long term (current) use of aspirin; Z86.73 Personal history of transient ischemic attack (TIA), and cerebral infarction without residual deficits